=== PATIENT | female | born 1980 ===

== ENCOUNTER 2024-01-19 10:54 | Emergency (ER) | payer OTHER, SELFPAY ==
--- NOTE | 2024-01-19 12:00 | DI.RAD.S_ITS ---
PROCEDURE: XR CHEST 1V INDICATIONS: syncope TECHNIQUE: One view of the chest was acquired. COMPARISON: None. FINDINGS: Surgical changes and devices: None. Lungs and pleura: Lungs are clear. No pleural effusions or pneumothorax. Mediastinum: Mediastinal contours appear normal. Heart size is normal. Bones and chest wall: No suspicious bony lesions. Overlying soft tissues appear unremarkable. IMPRESSION: No acute cardiopulmonary abnormality is seen. Dictated by: Wiliam Lind M.D. on 01/19/2024 at 11:30 Approved by: Wiliam Lind M.D. on 01/19/2024 at 11:31
[2024-01-19] MEDS: SODIUM CHLORIDE 0.9% 1,000 ML 1000 ML IV (13:15)
--- NOTE | 2024-01-19 18:16 | PC.NURSE ---
[facility] downtime 01/18/24 ~1999 = see paper downtime documentation
[2024-01-19 18:39] LABS: Add Manual Diff / Slide Review NO; Basophils Absolute Auto 100 /uL (0-100); Basophils Percent Auto 0.6 % (0-2); Eosinophils Absolute Auto 100 /uL (0-450); Eosinophils Percent Auto 0.7 % (2-4); Hematocrit 38.8 % (36-46); Hemoglobin 13.3 g/dL (12.0-16.0); Lymphocytes Absolute Auto 1100 /uL (1100-4500); Lymphocytes Percent Auto 9.6 % (25-40); Mean Corpuscular HGB Conc 34.3 % (30-36); Mean Corpuscular Hemoglobin 31.4 PG (26-34); Mean Corpuscular Volume 91.4 fL (80-100); Monocytes Absolute Auto 400 /uL (0-900); Monocytes Percent Auto 3.9 % (3-14); Neutrophils Absolute Auto 9600 /uL (1500-7000); Neutrophils Percent Auto 85.2 % (50-75); Platelet Count 283 X10^3/uL (150-400); Red Blood Cell Count 4.24 X10^6/uL (4.0-5.2); Red Cell Distribution Width 12.7 % (11.6-14.8); White Blood Cell Count 11.3 X10^3/uL (4.5-11.0)
[2024-01-19 18:40] LABS: Alanine Aminotransferase 15 IU/L (<35); Albumin 4.3 g/dL (3.5-5.0); Albumin Globulin Ratio 1.3 (1.0-2.8); Alkaline Phosphatase 65 U/L (38-126); Aspartate Aminotransferase 21 IU/L (14-36); BUN Creatinine Ratio 16.9 (6-22); Bilirubin Total 1.4 mg/dL (0.2-1.3); Blood Urea Nitrogen 13 mg/dL (7-17); Calcium 8.3 mg/dL (8.4-10.2); Carbon Dioxide 25 mmol/L (22-32); Chloride 106 mmol/L (98-107); Estimated Glomerular Filt Rate > 60 mL/min (>60); Globulin 3.2 g/dL (1.7-4.1); Glucose 98 mg/dL (70-100); HEMOLYSIS < 15 (0-50); Lipase 170 U/L (23-300); Magnesium 2.3 mg/dL (1.6-2.3); NT-proBNP (BNP-Adult 18+) 64 pg/mL (<125); Potassium 4.2 mmol/L (3.4-5.1); Sodium 137 mmol/L (137-145); Total Protein 7.5 g/dL (6.3-8.2); Troponin I < 0.012 ng/mL (0.01-0.034)
[2024-01-19 18:41] LABS: INR 1.1 (0.9-1.3); PTT Partial Thromboplastin Tim 29 SECONDS (25.1-36.5); Prothrombin Time 12.4 SECONDS (9.4-12.5)
[2024-01-19 18:55] LABS: Pregnancy Test Urine Negative (Negative)
[2024-01-19 18:55] LABS: Appearance Urine UA Clear; Color Urine UA Yellow
[2024-01-19 18:56] LABS: Bacteria Urine None Seen; Bilirubin Urine UA Negative (NEGATIVE); Culture Indicated Urine Cult Not Indicated; Glucose Urine UA TRACE g/dL (Negative); Ketones Urine UA NEGATIVE (NEGATIVE); Leukocyte Esterase Urine UA NEGATIVE (NEGATIVE); Nitrite Urine UA NEGATIVE (Negative); Occult Blood Urine UA 3+ (Negative); Protein Urine UA 1+ (Negative); RBC Urine None Seen (0-5/HPF); Squamous Epithelial Cell Urine 0-1 /HPF (0-5/HPF); Urine Volume 10mL (spun); Urobilinogen Urine UA 0.2 E.U./dL (0.2); WBC Urine 0-1/HPF (0-5/HPF); pH Urine UA 5.5 (4.5-8.0)
== END 2024-01-19 14:55 | disposition home or self-care (01) ==
PROVIDERS: Emergency Provider Emergency Medicine
DX: R55 Syncope and collapse (principal); K64.4 Residual hemorrhoidal skin tags; N93.9 Abnormal uterine and vaginal bleeding, unspecified
CPT/HCPCS: 71045; 80053; 81001; 81025; 83690; 83735; 83880; 84484; 85025; 85610; 85730; 93005; 93010; 99283; 99284